=== PATIENT | female | born 1955 | race Caucasian/White ===

== ENCOUNTER → 2020-07-08 15:04 | Outpatient (CLI) | payer BC | END | disposition home or self-care (01) | LOC: D.MRI 14:30 | PROVIDERS: ATTEND Clinical Nurse Specialist Family Health | DX: M25.562 Pain in left knee (principal) ==

== ENCOUNTER → 2020-12-25 14:21 | Outpatient (CLI) | payer BC ==
[2020-12-25 16:08] LABS: BASOPHILS 0.4 % (0-2); EOSINOPHILS 3.7 % (0-7); HEMATOCRIT 39.4 % (36.0-48.0); HEMOGLOBIN 12.6 g/dL (12-16); IMMATURE GRANULOCYTES 0.3 % (0-5); LYMPHOCYTE ABS# 5.02 10x3/uL (1.18-3.74); LYMPHOCYTES 47.9 % (15-50); MCH 26.8 pg (26.0-34.0); MCV 83.7 fL (80.0-100.0); MONOCYTES 9.5 % (2-11); NEUTROPHIL ABS# 4.01 10x3/uL (1.56-6.13); NEUTROPHILS 38.2 % (40-80); PLATELET COUNT 383 10x3/uL (130-400); RBC 4.71 10x6/uL (4.00-5.40); RDW 13.3 % (11.5-14.5); WBC 10.5 10x3/uL (4.8-10.8)
[2020-12-25 16:49] LABS: CALCIUM 8.9 mg/dL (8.5-10.1)
[2020-12-25 16:54] LABS: C-REACTIVE PROTEIN < 0.2 mg/dL (0.0-0.9)
[2020-12-25 17:12] LABS: ERYTHROCYTE SEDIMENTATION RATE 10 mm/hr (0-30)
== END | disposition home or self-care (01) ==
LOC: D.LABREF 14:21
PROVIDERS: ATTEND Nurse Practitioner Family
DX: M25.511 Pain in right shoulder (principal)